=== PATIENT | male | born 1950 | race Caucasian/White ===

== ENCOUNTER 2018-11-04 07:45 | Inpatient (IN) ==
--- NOTE | 2018-11-04 08:10 | Emergency Department Note ---
ED Disposition Clinical Impression: Ileus Disposition: Admitted as Observation Condition on Discharge: Fair - Critical Care Critical Care Time: No Attestation: On , the high probability of a clinically significant, sudden or life threatening deterioration of the following system(s) required my full and direct attention, intervention and personal management. The time I documented below is in addition to time spent performing reported procedures but includes the following listed in this critical care notation. Medical Decision Making - Fred Inquiry Pt receiving controlled substance: Yes Fred was queried for this patient: Yes Reference #:: [id number] Risks and benefits of using a controlled substance: were not discussed with pt by me Comment: 0 rxs. Vital Signs: 11/04/18 07:57 11/04/18 08:17 11/04/18 09:16 Temperature 98.2 F Temperature Source Oral Pulse Rate [Right Radial] 96 H 101 H 101 H Respiratory Rate 18 Blood Pressure [Right Arm] 158/87 H 155/100 H 165/103 H Blood Pressure Mean [Right Arm] 110 118 123 Blood Pressure Source [Right Arm] Automatic Cuff Blood Pressure Position [Right Arm] Sitting Sitting Sitting 02 Sat by Pulse Oximetry 99 95 95 Oxygen Delivery Method Room Air Room Air Room Air 11/04/18 10:55 11/04/18 12:38 11/04/18 13:13 Temperature Temperature Source Pulse Rate [Right Radial] 103 H 96 H 94 H Respiratory Rate Blood Pressure [Right Arm] 133/86 137/82 138/87 Blood Pressure Mean [Right Arm] 101 100 104 Blood Pressure Source [Right Arm] Automatic Cuff Automatic Cuff Automatic Cuff Blood Pressure Position [Right Arm] Sitting Sitting Sitting 02 Sat by Pulse Oximetry 97 98 97 Oxygen Delivery Method Room Air Room Air Room Air 11/04/18 13:54 11/04/18 14:01 Temperature Temperature Source Pulse Rate [Right Radial] 92 H 89 Respiratory Rate Blood Pressure [Right Arm] 149/71 H 149/71 H Blood Pressure Mean [Right Arm] 97 97 Blood Pressure Source [Right Arm] Automatic Cuff Automatic Cuff Blood Pressure Position [Right Arm] Sitting Sitting 02 Sat by Pulse Oximetry 95 98 Oxygen Delivery Method Room Air Room Air - Lab Data Lab Results 11/04/18 07:50: WBC 10.0, RBC 5.30, Hgb 14.6, Hct 44.3, MCV 83.5, MCH 27.4, MCHC 32.9, RDW 13.2, Plt Count 310, MPV 7.3 L, Neut % (Auto) 89.7 H, Lymph % (Auto) 6.1 L, [place] % (Auto) 3.8, Eos % (Auto) 0.2, Baso % (Auto) 0.2, Neut # (Auto) 8.9 H, Lymph # (Auto) 0.6 L, [place] # (Auto) 0.4, Eos # (Auto) 0.0, Baso # (Auto) 0.0, Total Counted 100, Neutrophils % (Manual) 90 H, Lymphocytes % (Manual) 5 L, Atypical Lymphs % 2.0, Monocytes % (Manual) 3, Platelet Estimate Normal 11/04/18 07:50: Sodium 135 L, Potassium 4.1, Chloride 100, Carbon Dioxide 27, Anion Gap 12.1, BUN 10, Creatinine 1.18, Estimated Creat Clear 67, Estimated GFR 62, Est GFR ( Amer) 75, Glucose 128 H, Calcium 9.6, Total Bilirubin 0.6, AST 25, ALT 44, Alkaline Phosphatase 88, Troponin I < 0.02, Total Protein 8.1, Albumin 4.4, Globulin 3.7 H, Albumin/Globulin Ratio 1.2, Lipase 220 Result diagrams: 11/04/18 07:50 11/04/18 07:50 Orders (Tests/Meds): ED MEDICATIONS Generic Name Dose Route Start Last Admin Trade Name Freq PRN Reason Stop Dose Admin Sodium Chloride 1,000 mls @ 150 mls/hr 11/04/18 13:45 Sod Chlor 0.9% 1000ml Bag IV 12/04/18 13:44 .[id number] ALANNA Sodium Chloride 10 ml 11/04/18 08:06 Saline Flush 10ml Syringe IV 12/04/18 08:05 NEEDED PRN Maintain IV Site Discontinued Medications Generic Name Dose Route Start Last Admin Trade Name Freq PRN Reason Stop Dose Admin Famotidine 20 mg 11/04/18 08:06 11/04/18 08:20 Pepcid 20mg/2ml Vial IV 11/04/18 08:07 20 mg ONCE ONE Administration Ioversol 75 ml 11/04/18 12:04 11/04/18 12:06 Rad-Optiray 350 100ml Vial IV 11/04/18 12:05 75 ml ONCE ONE Administration Protocol Metoclopramide HCl 5 mg 11/04/18 08:06 11/04/18 08:19 Reglan 10mg/2ml Vial IVP 11/04/18 08:07 5 mg ONCE ONE Administration Morphine Sulfate 4 mg 11/04/18 10:14 11/04/18 10:19 Morphine 4mg/Ml Syringe IV 11/04/18 10:15 4 mg ONCE ONE Administration Morphine Sulfate 4 mg 11/04/18 13:42 11/04/18 14:02 Morphine 4mg/Ml Syringe IV 11/04/18 13:43 4 mg ONCE ONE Administration Ondansetron HCl 4 mg 11/04/18 08:06 11/04/18 08:19 Zofran 4mg/2ml Vial IV 11/04/18 08:07 4 mg ONCE ONE Administration Promethazine HCl 12.5 mg 11/04/18 13:42 11/04/18 14:02 Phenergan 25mg/Ml 1ml Vial IV 11/04/18 13:43 12.5 mg ONCE ONE Administration Sodium Chloride 1,000 ml 11/04/18 08:06 11/04/18 08:20 Sod Chlor 0.9% 1000ml Bag IV 11/04/18 08:07 1,000 ml BOLUS ONE Administration Sodium Chloride 8 ml 11/04/18 08:06 11/04/18 08:20 Saline Flush 10ml Syringe IV 11/04/18 08:07 8 ml ONCE ONE Administration Sodium Chloride 10 ml 11/04/18 12:04 11/04/18 12:05 Rad-Saline Flush 10ml Syringe IV 11/04/18 12:05 10 ml ONCE ONE Administration Sodium Chloride 25 ml 11/04/18 13:42 11/04/18 14:03 Sod Chlor 0.9% 25ml Bag IV 11/04/18 13:43 25 ml ONCE ONE Administration ORDERS Category Date Time Status Urinalysis and Microscopic Stat Lab 11/04/18 08:06 Ordered - CT Data CT Scan: Abdomen, Pelvis Time Received: 13:[address] Reviewed: Yes: I discussed the CT results w/the radiologist Findings Narrative: IMPRESSION: 1. Moderately dilated loops of small bowel with air-fluid levels. Transition point is not identified. Residual oral contrast is present within the stomach despite waiting 2 hours for imaging. The findings may represent to an ileus. Cannot exclude the possibility of a small bowel obstruction. There are some fluid-filled loops of large bowel the cecum and ascending colon region. 2. Large hiatal hernia. Dictated By: Barrie Overton MD 11/04/18 1318 - ECG Data Tracing #1 EKG interpreted by Rodrick Sandoval MD: Rhythm: sinus Rate: 98 [place]: normal Ectopy: none Conduction: normal ST Segment Changes: none T Wave Changes: none Q Waves: none No evidence of acute ischemia or injury - Physician Consults Physician Consulted: Mika Time: 13:57 Reason -: Surgical Eval/Care Comment/Response: States to call Dr. Bro, who is on-call today. Additional Consult: Dieudonne Time: 14:13 Reason -: Surgical Eval/Care Comment/Response: Requests that patient be admitted to primary care with consult to surgery. Additional Consult: Danny Time: 14:40 Reason -: Admission Comment/Response: Agrees to admit the patient to the hospital. We discussed the patient's clinical information, including history, exam, laboratory and radiology results and ED course. Per hospital procedure, I will write temporary bridge inpatient orders on the patient. Specific orders requested by the admitting physician: IV fluids, pain medication, nausea medication, surgery consult - Reevaluation(s) Time: 10:12 Reevaluation #1: Has been able to hold contrast down so far. States pain is still 6/10. Discussed pain medication. He requests something for pain. Says that at [facility] he was given morphine. Medical Decision Narrative: Given that this is a chronic, recurrent complaint, I discussed with the patient what evaluation and treatment that he preferred, including CT scan. He prefers that a full abdominal pain evaluation be performed. He does not know what medications have helped him in the past. Records reviewed, noted to have prior visit here to the emergency room in September of last year for abdominal problems. Had a CT scan: --IMPRESSION.---- 1. probable colitis right colon. Wall thickening throughout the ascending colon .. Long segment of wall thickening tend to suggest colitis versus other pathology, however surprised continue to see solid rather than liquid stool throughout colon. Clinical correlation required 2. Small bowel is not dilated. Note undigested food terminal ileum, as well as more proximal small bowel.. Nonspecific but May reflect ileus 3. Prominent hiatal hernia Dictated By: Thierry Saldivar Signed By: <Electronically signed by Thierry Saldivar in OV> 09/29/17 1216 Reviewed recent records from colonoscopy. Polyps removed were benign on pathology. Dr. Greene was performing barium enema because of tortuosity and spasticity encountered on colonoscopy. General Adult HPI - General Chief complaint: Abdominal Pain Stated complaint: stomach pain and burning Time Seen by Provider: 11/04/18 08:07 Mode of Arrival: Wheelchair Limitations: No Limitations Description of Symptoms (Recalled from ER Triage Doc. by RN): PT C/O CHRONIC ABD BURNING IN THE UMBILICUS REGION. PT ADVISES THAT HE HAD AN APPT FOR A BARIUM ENEMA STUDY THIS MORNING, BUT FELT THAT HE WAS UNABLE TO D/T THE SEVERITY OF THE BURNING IN HIS ABD. PT STATES THAT THIS HAS BEEN GOING ON FOR A COUPLE YEARS AND HE HAS HAD MULTIPLE TESTS RUN WITH NO RESULTS. - History of Present Illness HPI narrative: Complains of periumbilical abdominal pain, vomiting, and diarrhea that began last night. He says that he has had so much diarrhea that he now has small amounts of blood on the toilet paper when he wipes from where he is gotten raw. Says that he was prepping for a barium enema to be performed today as follow-up for colonoscopy that he had 3 months ago. He says the symptoms are recurrent over several years. He says that he had 2 episodes in April and was hospitalized both times at [facility] in [place]. After his most recent hospitalization, he followed up with Dr. Brennan and had a colonoscopy done. He believes 2 polyps were removed. He says that the barium enema was to be performed today as follow-up from that study, "because he wanted to make sure he did not miss anything". Patient states that no cause for his symptoms has been found to his knowledge. He does not know what seems to help him best when he comes to the emergency room as far as medication or treatment. He is on a proton pump inhibitor for reflux. He is aware that he has a hiatal hernia. - Related Data Home Medications Medication Instructions Recorded Confirmed Atorvastatin Calcium [Atorvastatin 20 mg PO DAILY 09/28/17 07/01/18 20mg Tab] Lisinopril [Lisinopril 20mg Tab] 20 mg PO DAILY 09/28/17 07/01/18 Pantoprazole Sodium [Pantoprazole 20 mg PO DAILY 09/28/17 07/01/18 20mg Tab] Allergies Allergy/AdvReac Type Severity Reaction Status Date / Time No Known Allergies Allergy Verified 07/01/18 10:35 [facility] History - Hepatitis A Screen Drug use history?: No High risk sexual behaviors?: No History of sexually transmitted infection?: No Currently employed?: No Childcare worker?: No Do you have indoor plumbing?: Yes Do you have electricity?: Yes Attestation statement:: This patient has been screened for Hepatitis A risk factors. I have reviewed the patient's past medical history: Yes Medical History: Reports:: Cancer, Gastroesophageal Reflux Disease(GERD), Hyperlipidemia, Hypertension Denies:: Diabetes Mellitus Type 1, Diabetes Mellitus Type 2, Internal Pacemaker, Lung Disease, Seizures Other Surgeries: Yes: Cancer Surgery (prostate removal), Colonoscopy. No: Pacemaker - Social History Smoking Status: Never smoker Alcohol Intake: never Occupational Status: employed Family Hx:: Diabetes ROS Obtained: Yes All systems reviewed & no additional complaints - Constitutional Constitutional: Denies fever(s) - Cardiovascular Cardiovascular: Denies chest pain - Respiratory Respiratory: No dyspnea - Gastrointestinal Gastrointestingal: Reports: abdominal pain, diarrhea, bright red blood in stools, vomiting - Genitourinary Male Genitourinary: Denies difficulty urinating Physical Exam - General General appearance: alert, in no apparent distress - Head Head exam: atraumatic, normocephalic - Eye Eye exam: Present: normal appearance, EOMI - ENT ENT exam: Present: mucous membranes moist - Neck Neck exam: Present: normal inspection, trachea midline - Chest Chest inspection: Present: normal inspection, symmetric chest wall rise - Respiratory Respiratory exam: Present: normal lung sounds bilaterally. Absent: respiratory distress - Cardiovascular Cardiovascular exam: Present: regular rate, normal rhythm, normal heart sounds - Abdominal Exam Abdominal exam: Present: soft, tenderness, normal bowel sounds. Absent: distention, guarding, rebound, rigidity Abdominal tenderness: Present: diffuse - Extremities Exam Extremities exam: Present: normal inspection - Neurological Exam Neurological exam: Present: alert, oriented X3 - Psychiatric Psychiatric exam: Present: normal affect, normal mood - Skin Skin exam: Present: warm, dry
[2018-11-04 08:27] LABS: Basophils % 0.2 % (0.1-2.0); Eosinophils % 0.2 % (0.1-12.0); Hematocrit 44.3 % (42.0-52.0); Hemoglobin 14.6 g/dL (14.1-18.0); Lymphocytes # 0.6 K/mm3 (0.7-4.5); Lymphocytes % 6.1 % (10-50); Mean Corpuscular HGB Conc 32.9 g/dL (31.8-35.4); Mean Corpuscular Volume 83.5 fl (80-94); Mean Platelet Volume 7.3 fl (7.4-10.4); Monocytes # 0.4 K/mm3 (0.1-1.0); Monocytes % 3.8 % (1.7-9.3); Neutrophils # 8.9 K/mm3 (1.8-7.8); Neutrophils % 89.7 % (37.0-80.0); Platelet Count 310 K/mm3 (142-424); Red Cell Distribution Width 13.2 % (11.5-17.5)
[2018-11-04 08:54] LABS: Alanine Aminotransferase 44 U/L (12-78); Albumin Level 4.4 gm/dL (3.4-5.0); Albumin/Globulin Ratio 1.2 (1.1-1.8); Alkaline Phosphatase 88 U/L (46-116); Anion Gap 12.1 mEq/L (5-15); Aspartate Amino Transferase 25 U/L (15-37); Bilirubin,Total 0.6 mg/dL (0.2-1.0); Blood Urea Nitrogen 10 mg/dL (7-18); Calcium 9.6 mg/dL (8.5-10.1); Carbon Dioxide 27 mmol/L (21.0-32.0); Chloride 100 mmol/L (98-107); Globulin 3.7 gm/dl (1.3-3.2); Glucose 128 mg/dL (74-106); Sodium 135 mmol/L (136-145); Total Protein,Serum 8.1 gm/dL (6.4-8.2)
[2018-11-04 09:38] LABS: Lymphocytes % 5 % (10-50); Monocytes % 3 % (2-9); Neutrophils % 90 % (42-76); Total Cells Counted 100
--- NOTE | 2018-11-04 15:00 | Consult Report ---
*Admission Date: 11/04/18 *Reason for consult:: Possible bowel obstruction *History of present illness: Patient is a 67-year-old white male. For many years he has had occasional episodes of acute abdominal distention, cramping pain, nausea, and often diarrhea. Apparently he has had a couple of hospitalizations in [facility] where he was evaluated for this. Apparently there is no obvious etiology for his symptoms. Of note, the patient did undergo upper endoscopy and colonoscopy in [address] Laurel Tan at which time he did have suspicious esophageal stricture and also had 5 polyps removed during colonoscopy. He did have a follow-up upper endoscopy a month later which revealed resolved eso phagitis. Dr. Brennan had performed a colonoscopy in February 2016 at which time he had a polypectomy performed. Dr. Brennan performed a follow-up colonoscopy several months ago in June of this year at which time he did have a polyp removed in the right colon which was benign. There was tortuosity and spasticity of the colon and patient had a barium enema scheduled to work this up for which she was scheduled to have done today. He had drank the magnesium citrate colonic preparation in anticipation of barium enema today. He had then developed some symptoms as before with abdominal distention and cramping pain. He presented to the emergency department at [facility]. He underwent CT scan with IV and oral contrast. This reveals some findings mostly consistent with diffuse ileus with possible bowel obstruction. Contrast is retained within the gastric lumen and there is small bowel distention with air- fluid levels diffusely. There is no transition point consistent with mechanical obstruction. His apparent only prior surgery is robotically assisted laparoscopic prostatectomy. There is a possible history of prior hernia repair. Review of Systems - Review of Systems Review of systems:: pertinent systems reviewed and negative unless documented below [facility] History Medical History: Reports:: Cancer, Gastroesophageal Reflux Disease(GERD), Hyperlipidemia, Hypertension Denies:: Diabetes Mellitus Type 1, Diabetes Mellitus Type 2, Internal Pacemaker, Lung Disease, Seizures *Have you ever received a pneumonia vaccine?: Yes *Have you received a flu vaccine this season?: Yes Other Surgeries: Yes: Cancer Surgery (prostate removal), Colonoscopy. No: Pacemaker - *Social History Smoking Status: Never smoker Alcohol Intake: never *Occupational Status:: employed *Travel in the last 8 weeks: None Family Hx:: Diabetes Meds Home Medications Medication Instructions Recorded Confirmed Type Atorvastatin Calcium [Atorvastatin 20 mg PO DAILY 09/28/17 07/01/18 History 20mg Tab] Lisinopril [Lisinopril 20mg Tab] 20 mg PO DAILY 09/28/17 07/01/18 History Pantoprazole Sodium [Pantoprazole 20 mg PO DAILY 09/28/17 07/01/18 History 20mg Tab] Allergies Allergy/AdvReac Type Severity Reaction Status Date / Time No Known Allergies Allergy Verified 07/01/18 10:35 Exam Vital signs and Labs for Last 24 Hours: Temp Pulse Resp BP Pulse Ox 98.2 F 89 18 149/71 H 98 11/04/18 07:57 11/04/18 14:01 11/04/18 07:57 11/04/18 14:01 11/04/18 14:01 Laboratory Results - last 24 hr 11/04/18 07:50: WBC 10.0, RBC 5.30, Hgb 14.6, Hct 44.3, MCV 83.5, MCH 27.4, MCHC 32.9, RDW 13.2, Plt Count 310, MPV 7.3 L, Neut % (Auto) 89.7 H, Lymph % (Auto) 6.1 L, [place] % (Auto) 3.8, Eos % (Auto) 0.2, Baso % (Auto) 0.2, Neut # (Auto) 8.9 H, Lymph # (Auto) 0.6 L, [place] # (Auto) 0.4, Eos # (Auto) 0.0, Baso # (Auto) 0.0, Total Counted 100, Neutrophils % (Manual) 90 H, Lymphocytes % (Manual) 5 L, Atypical Lymphs % 2.0, Monocytes % (Manual) 3, Platelet Estimate Normal 11/04/18 07:50: Sodium 135 L, Potassium 4.1, Chloride 100, Carbon Dioxide 27, Anion Gap 12.1, BUN 10, Creatinine 1.18, Estimated Creat Clear 67, Estimated GFR 62, Est GFR ( Amer) 75, Glucose 128 H, Calcium 9.6, Total Bilirubin 0.6, AST 25, ALT 44, Alkaline Phosphatase 88, Troponin I < 0.02, Total Protein 8.1, Albumin 4.4, Globulin 3.7 H, Albumin/Globulin Ratio 1.2, Lipase 220 I & O for Last 24 hours: Intake & Output 07/14/19 07/15/19 07/16/19 07/17/19 11:59 11:59 11:59 11:59 Weight 170 lb - *Routine HEENT Exam Head: Present: normocephalic Eye: Present: EOMI, PERRL ENT: Present: mucous membranes moist - *Routine Neck Exam Present: supple. Absent: lymphadenopathy - *Routine Respiratory Exam Present: CTA bilaterally - *Routine Cardiovascular Exam Present: RRR - *Routine Abdominal Exam Present: tenderness Comments: His abdomen is somewhat distended. He has hypoactive bowel sounds. He has no guarding or rebound. Diffuse minor discomfort to deep palpation. - *Routine Extremities Exam Absent: cyanosis, clubbing, edema - *Routine Skin Exam Present: warm. Absent: rash - *Routine Neurological Exam Present: alert, oriented X3 - Detailed Eye Exam Eyelids: Left normal inspection Results - Labs 11/04/18 07:50 11/04/18 07:50 Laboratory Results - last 24 hr 11/04/18 07:50: WBC 10.0, RBC 5.30, Hgb 14.6, Hct 44.3, MCV 83.5, MCH 27.4, MCHC 32.9, RDW 13.2, Plt Count 310, MPV 7.3 L, Neut % (Auto) 89.7 H, Lymph % (Auto) 6.1 L, [place] % (Auto) 3.8, Eos % (Auto) 0.2, Baso % (Auto) 0.2, Neut # (Auto) 8.9 H, Lymph # (Auto) 0.6 L, [place] # (Auto) 0.4, Eos # (Auto) 0.0, Baso # (Auto) 0.0, Total Counted 100, Neutrophils % (Manual) 90 H, Lymphocytes % (Manual) 5 L, Atypical Lymphs % 2.0, Monocytes % (Manual) 3, Platelet Estimate Normal 11/04/18 07:50: Sodium 135 L, Potassium 4.1, Chloride 100, Carbon Dioxide 27, Anion Gap 12.1, BUN 10, Creatinine 1.18, Estimated Creat Clear 67, Estimated GFR 62, Est GFR ( Amer) 75, Glucose 128 H, Calcium 9.6, Total Bilirubin 0.6, AST 25, ALT 44, Alkaline Phosphatase 88, Troponin I < 0.02, Total Protein 8.1, Albumin 4.4, Globulin 3.7 H, Albumin/Globulin Ratio 1.2, Lipase 220 Assessment and Plan - Assessment and plan all Dx Assessment and Plan for all problems:: Patient has findings consistent with ileus versus partial bowel obstruction. Plan for expectant management at this time. To investigate the etiology of these ongoing symptoms he may require small bowel follow-through and potentially capsule endoscopy in the future assuming his symptoms improved without intervention during this hospitalization.
--- NOTE | 2018-11-04 15:46 | Pharmacy Consult Notes ---
[facility] Pharmacy VTE Monitoring - Patient Demographics Admission date: 11/04/18 Report Date: 11/04/18 Time: 15:46 Allergies/Adverse Reactions: Patient Allergies No Known Allergies Allergy (Verified 07/01/18 10:35) Height: 1.75 m Weight: 77.111 kg Patient Problems: Current Active Problems (Updated 11/04/18 @ 14:41 by Rodrick Sandoval MD) Ileus (Acute) - VTE Risk Labs: VTE Related Lab Results Hgb 14.6 g/dL (14.1-18.0) 11/04/18 07:50 Hct 44.3 % (42.0-52.0) 11/04/18 07:50 Plt Count 310 K/mm3 (142-424) 11/04/18 07:50 BUN 10 mg/dL (7-18) 11/04/18 07:50 Creatinine 1.18 mg/dL (0.70-1.30) 11/04/18 07:50 Estimated Creat Clear 67 mL/min (50-200) 11/04/18 07:50 - Prophylaxis VTE Prophylaxis Ordered?: Yes Types of VTE Prophylaxis: TEDS Knee High Location of Applied Device: Bilateral Lower Extremeties - VTE Diagnosis Confirmed Treatment or plan recommended: Continue Current Treatment
--- NOTE | 2018-11-04 16:20 | History & Physical Report ---
*Admission Date: 11/04/18 *Chief complaint: Abdominal pain *History of present illness: Patient is a 67-year-old white male. For many years he has had occasional episodes of acute abdominal distention, cramping pain, nausea, and often diarrhea. Apparently he has had a couple of hospitalizations in [facility] where he was evaluated for this. Apparently there is no obvious etiology for his symptoms. Of note, the patient did undergo upper endoscopy and colonoscopy in [address] Laurel Tan at which time he did have suspicious esophageal stricture and also had 5 polyps removed during colonoscopy. He did have a follow-up upper endoscopy a month later which revealed resolved esophagitis. Dr. Brennan had performed a colonoscopy in February 2016 at which time he had a polypectomy performed. Dr. Brennan performed a follow-up colonoscopy several months ago in June of this year at which time he did have a polyp removed in the right colon which was benign. There was tortuosity and spasticity of the colon and patient had a barium enema scheduled to work this up for which she was scheduled to have done today. He had drank the magnesium citrate colonic preparation in anticipation of barium enema today. He had then developed some symptoms as before with abdominal distention and cramping pain. He presented to the emergency department at [facility]. He underwent CT scan with IV and oral contrast. This reveals some findings mostly consistent with diffuse ileus with possible bowel obstruction. Contrast is retained within the gastric lumen and there is small bowel distention with air- fluid levels diffusely. There is no transition point consistent with mechanical obstruction. His apparent only prior surgery is robotically assisted laparoscopic prostatectomy. There is a possible history of prior hernia repair. [facility] History I have reviewed the patient's past medical history: Yes Medical History: Reports:: Cancer (prostate cancer 2013), Gastroesophageal Reflux Disease(GERD), Hyperlipidemia, Hypertension Denies:: Diabetes Mellitus Type 1, Diabetes Mellitus Type 2, Internal Pacemaker, Lung Disease, Seizures *Have you ever received a pneumonia vaccine?: Yes *Have you received a flu vaccine this season?: Yes Other Surgeries: Yes: Cancer Surgery (prostate removal), Colonoscopy, Other (prostate removed). No: Pacemaker - *Social History Smoking Status: Never smoker Alcohol Intake: never *Occupational Status:: employed *Travel in the last 8 weeks: None - Psychiatric History Expresses thoughts of harming self/others: None Suicide Plan Description: No Plan Family Hx:: Diabetes Review of Systems - Review of Systems Review of systems:: pertinent systems reviewed and negative unless documented below - Constitutional Denies chills, Denies fever(s) - *Cardiovascular Denies chest pain, Denies chest pain at rest - *Respiratory Denies chest congestion, Denies cough, Denies shortness of breath - *Gastrointestinal Reports abdominal pain, Reports bloating, Reports change in bowel habits, Reports cramping, Reports loose stools, Reports nausea, Reports other (Dry heaving) - *Genitourinary Denies difficulty urinating Meds Home Medications Medication Instructions Recorded Confirmed Type Atorvastatin Calcium [Atorvastatin 20 mg PO DAILY 09/28/17 11/04/18 History 20mg Tab] Lisinopril [Lisinopril 20mg Tab] 20 mg PO DAILY 09/28/17 11/04/18 History Pantoprazole Sodium [Protonix 40mg 40 mg PO DAILY 11/04/18 11/04/18 History tablet] Allergies Allergy/AdvReac Type Severity Reaction Status Date / Time No Known Allergies Allergy Verified 07/01/18 10:35 Exam Vital signs and Labs for Last 24 Hours: Temp Pulse Resp BP Pulse Ox 98.2 F 101 H 17 142/88 H 97 11/04/18 15:44 11/04/18 15:44 11/04/18 15:44 11/04/18 15:44 11/04/18 15:44 Laboratory Results - last 24 hr 11/04/18 07:50: WBC 10.0, RBC 5.30, Hgb 14.6, Hct 44.3, MCV 83.5, MCH 27.4, MCHC 32.9, RDW 13.2, Plt Count 310, MPV 7.3 L, Neut % (Auto) 89.7 H, Lymph % (Auto) 6.1 L, [place] % (Auto) 3.8, Eos % (Auto) 0.2, Baso % (Auto) 0.2, Neut # (Auto) 8.9 H, Lymph # (Auto) 0.6 L, [place] # (Auto) 0.4, Eos # (Auto) 0.0, Baso # (Auto) 0.0, Total Counted 100, Neutrophils % (Manual) 90 H, Lymphocytes % (Manual) 5 L, Atypical Lymphs % 2.0, Monocytes % (Manual) 3, Platelet Estimate Normal 11/04/18 07:50: Sodium 135 L, Potassium 4.1, Chloride 100, Carbon Dioxide 27, Anion Gap 12.1, BUN 10, Creatinine 1.18, Estimated Creat Clear 67, Estimated GFR 62, Est GFR ( Amer) 75, Glucose 128 H, Calcium 9.6, Total Bilirubin 0.6, AST 25, ALT 44, Alkaline Phosphatase 88, Troponin I < 0.02, Total Protein 8.1, Albumin 4.4, Globulin 3.7 H, Albumin/Globulin Ratio 1.2, Lipase 220 I & O for Last 24 hours: Intake & Output 11/02/18 11/03/18 11/04/18 11/05/18 11:59 11:59 11:59 11:59 Weight 170 lb 180 lb Narrative: At present patient is laying in bed and appears comfortable. ENT exam is normal. Neck has no carotid bruits or lymphadenopathy. Lungs are clear to auscultation. Heart has a rapid rate and rhythm, no murmur, normal S1 and S2. Abdomen is mildly distended and soft with hypoactive bowel sounds. No tenderness is elicited. Patient has a normal neurologic exam. Skin is without rashes Assessment and Plan (1) Ileus Current visit: Yes Status: Acute Category: Medical Code(s): K56.7 - Ileus, unspecified - Assessment and plan all Dx Assessment and Plan for all problems:: Patient has been admitted for IV fluids and serial abdominal exams. He will be kept n.p.o. and have repeat abdominal films in the morning
--- NOTE | 2018-11-05 06:56 | Progress Note ---
Internal Medicine - PN: Subj *Date: 11/05/18 *Time: 06:53 Interval history: Patient reports lots of crampy abdominal pain overnight. He received some PRN pain medication this morning which has him comfortable at present. He continues to have some nausea but endorses lots of belching as well. He admits to small amounts of flatus. He denies any bowel movement since admission. He is urinating frequently. Exam Vital signs and Labs for Last 24 Hours: Temp Pulse Resp BP Pulse Ox 97.8 F 99 H 20 148/81 H 96 11/05/18 04:10 11/05/18 04:10 11/05/18 04:10 11/05/18 04:10 11/05/18 04:10 Laboratory Results - last 24 hr 11/04/18 07:50: WBC 10.0, RBC 5.30, Hgb 14.6, Hct 44.3, MCV 83.5, MCH 27.4, MCHC 32.9, RDW 13.2, Plt Count 310, MPV 7.3 L, Neut % (Auto) 89.7 H, Lymph % (Auto) 6.1 L, [place] % (Auto) 3.8, Eos % (Auto) 0.2, Baso % (Auto) 0.2, Neut # (Auto) 8.9 H, Lymph # (Auto) 0.6 L, [place] # (Auto) 0.4, Eos # (Auto) 0.0, Baso # (Auto) 0.0, Total Counted 100, Neutrophils % (Manual) 90 H, Lymphocytes % (Manual) 5 L, Atypical Lymphs % 2.0, Monocytes % (Manual) 3, Platelet Estimate Normal 11/04/18 07:50: Sodium 135 L, Potassium 4.1, Chloride 100, Carbon Dioxide 27, Anion Gap 12.1, BUN 10, Creatinine 1.18, Estimated Creat Clear 67, Estimated GFR 62, Est GFR ( Amer) 75, Glucose 128 H, Calcium 9.6, Total Bilirubin 0.6, AST 25, ALT 44, Alkaline Phosphatase 88, Troponin I < 0.02, Total Protein 8.1, Albumin 4.4, Globulin 3.7 H, Albumin/Globulin Ratio 1.2, Lipase 220 I & O for Last 24 hours: Intake & Output 11/02/18 11/03/18 11/04/1819 11:59 11:59 11:59 11:59 Intake Total 1851 / 1851 Output Total 350 / 350 Balance 1501 / 1501 Weight 170 lb 178 lb 4 oz Narrative: He looks comfortable at present. Lungs are clear. Heart has a regular rate and rhythm. Abdomen is soft and distended. This morning bowel sounds are more prominent. Abdominal series performed this morning continues to show gaseous distention and multiple air-fluid levels Assessment and Plan (1) Ileus Current visit: Yes Status: Acute Category: Medical Code(s): K56.7 - Ileus, unspecified - Assessment and plan all Dx Assessment and Plan for all problems:: Continue n.p.o. status. Patient is ambulating. I did inquire about previous hospitalizations and use of NG tube to try to relieve his gaseous distention. He tells me during his last hospitalization at [facility] the NG tube could not be placed properly due to his hiatal hernia and ultimately the idea of inserting the NG was given up on. This was in April of this year.
--- NOTE | 2018-11-05 07:56 | Progress Note ---
Subjective Narrative: Patient states that last night he had some cramping abdominal pain. He has had some nausea and dry heaves with belching. He does state that he is passing a "little bit" of gas. In the past, when he has had the symptoms at the outside facility, nasogastric tube placement has been unsuccessful largely due to his very large hiatal hernia. Exam Vital signs and Labs for Last 24 Hours: Temp Pulse Resp BP Pulse Ox 98.9 F 50 L 16 151/79 H 100 11/05/18 07:47 11/05/18 07:47 11/05/18 07:47 11/05/18 07:47 11/05/18 07:47 Laboratory Results - last 24 hr 11/04/18 07:50: WBC 10.0, RBC 5.30, Hgb 14.6, Hct 44.3, MCV 83.5, MCH 27.4, MCHC 32.9, RDW 13.2, Plt Count 310, MPV 7.3 L, Neut % (Auto) 89.7 H, Lymph % (Auto) 6.1 L, [place] % (Auto) 3.8, Eos % (Auto) 0.2, Baso % (Auto) 0.2, Neut # (Auto) 8.9 H, Lymph # (Auto) 0.6 L, [place] # (Auto) 0.4, Eos # (Auto) 0.0, Baso # (Auto) 0.0, Total Counted 100, Neutrophils % (Manual) 90 H, Lymphocytes % (Manual) 5 L, Atypical Lymphs % 2.0, Monocytes % (Manual) 3, Platelet Estimate Normal 11/04/18 07:50: Sodium 135 L, Potassium 4.1, Chloride 100, Carbon Dioxide 27, Anion Gap 12.1, BUN 10, Creatinine 1.18, Estimated Creat Clear 67, Estimated GFR 62, Est GFR ( Amer) 75, Glucose 128 H, Calcium 9.6, Total Bilirubin 0.6, AST 25, ALT 44, Alkaline Phosphatase 88, Troponin I < 0.02, Total Protein 8.1, Albumin 4.4, Globulin 3.7 H, Albumin/Globulin Ratio 1.2, Lipase 220 I & O for Last 24 hours: Intake & Output 11/02/18 11/03/18 11/04/18 11/05/18 11:59 11:59 11:59 11:59 Intake Total 1851 / 1851 Output Total 350 / 350 Balance 1501 / 1501 Weight 170 lb 178 lb 4 oz - *Routine Abdominal Exam Present: distended Comments: He has hypoactive with occasional high-pitched bowel sounds. Abdomen is somewhat distended. Progress Note: A&P (1) Ileus Status: Acute Current Visit: Yes Assessment and Plan for All Diagnoses:: Continue bowel rest at this time. Acute abdominal series shows persistent appreciable gaseous distention of the small bowel with some air-fluid levels but may be slightly improved.
--- NOTE | 2018-11-06 07:09 | Progress Note ---
Internal Medicine - PN: Subj *Date: 11/06/18 *Time: 07:08 Interval history: Patient complains of heartburn this morning. He reports he has been to the bathroom frequently beginning yesterday evening and overnight with lots of watery bowel movements and flatus. He denies abdominal pain Exam Vital signs and Labs for Last 24 Hours: Temp Pulse Resp BP Pulse Ox 98.9 F 106 H 17 137/90 94 L 11/06/18 03:44 11/06/18 03:44 11/06/18 03:44 11/06/18 03:44 11/06/18 03:44 I & O for Last 24 hours: Intake & Output 11/03/18 11/04/18 11/05/18 11/06/18 11:59 11:59 11:59 11:59 Intake Total 1851 / 1851 3643 / 3643 Output Total 350 / 350 100 / 100 Balance 1501 / 1501 3543 / 3543 Weight 170 lb 178 lb 4.005 oz 187 lb 6 oz Narrative: He looks well. Lungs are clear. Heart has a regular rate and rhythm. Abdomen is mildly distended with active bowel sounds and no tenderness Assessment and Plan (1) Ileus Current visit: Yes Status: Acute Category: Medical Code(s): K56.7 - Ileus, unspecified - Assessment and plan all Dx Assessment and Plan for all problems:: Patient is slowly improving. I am going to give him some clear liquids this morning. Encouraged him to ambulate. IV Protonix for his acid reflux
--- NOTE | 2018-11-06 08:00 | Progress Note ---
Subjective Narrative: Patient complains of heartburn overnight. He states that he has had numerous loose liquid bowel movements. He states he feels somewhat better. Exam Vital signs and Labs for Last 24 Hours: Temp Pulse Resp BP Pulse Ox 98.0 F 105 H 18 140/94 H 99 11/06/18 07:51 11/06/18 07:51 11/06/18 07:51 11/06/18 07:51 11/06/18 07:51 I & O for Last 24 hours: Intake & Output 11/03/18 11/04/18 11/05/18 11/06/18 11:59 11:59 11:59 11:59 Intake Total 1851 / 1851 3643 / 3643 Output Total 350 / 350 100 / 100 Balance 1501 / 1501 3543 / 3543 Weight 170 lb 178 lb 4.005 oz 187 lb 6 oz - *Routine Abdominal Exam Absent: tenderness Comments: His abdomen is somewhat distended. He has hypoactive bowel sounds. Progress Note: A&P (1) Ileus Status: Acute Current Visit: Yes Assessment and Plan for All Diagnoses:: Agree with clear liquids. Continue attempts at nonoperative management.
--- NOTE | 2018-11-07 07:16 | Progress Note ---
Internal Medicine - PN: Subj *Date: 11/07/18 *Time: 07:15 Interval history: Patient is without any new complaints this morning. He is still having frequent watery bowel movements, typically after drinking his clear liquids. He denies hunger. He denies nausea and pain Exam Vital signs and Labs for Last 24 Hours: Temp Pulse Resp BP Pulse Ox 98.3 F 59 L 18 109/64 L 92 L 11/07/18 04:00 11/07/18 04:00 11/07/18 04:00 11/07/18 04:00 11/07/18 04:00 I & O for Last 24 hours: Intake & Output 11/04/18 11/05/18 11/06/18 11/07/18 11:59 11:59 11:59 11:59 Intake Total 1851 / 1851 3643 / 3643 1769 / 1769 Output Total 350 / 350 100 / 100 150 / 150 Balance 1501 / 1501 3543 / 3543 1619 / 1619 Weight 170 lb 178 lb 4.005 oz 187 lb 6 oz 188 lb 6 oz Narrative: He does not appear ill. Lungs are clear. Heart has a regular rate and rhythm. Abdomen is soft and nontender with active bowel sounds Assessment and Plan (1) Ileus Current visit: Yes Status: Acute Category: Medical Code(s): K56.7 - Ileus, unspecified - Assessment and plan all Dx Assessment and Plan for all problems:: His ileus is improving. I am going to advance his diet to full liquids. Ideall y the patient will be tolerating full liquids prior to discharge.
--- NOTE | 2018-11-07 07:17 | Progress Note ---
Subjective Patient reports: feels better, flatus, bowel movement (still with intermittent "loose stool") Exam Vital signs and Labs for Last 24 Hours: Temp Pulse Resp BP Pulse Ox 98.3 F 59 L 18 109/64 L 92 L 11/07/18 04:00 11/07/18 04:00 11/07/18 04:00 11/07/18 04:00 11/07/18 04:00 I & O for Last 24 hours: Intake & Output 11/04/18 11/05/18 11/06/18 11/07/18 11:59 11:59 11:59 11:59 Intake Total 1851 / 1851 3643 / 3643 1769 / 1769 Output Total 350 / 350 100 / 100 150 / 150 Balance 1501 / 1501 3543 / 3543 1619 / 1619 Weight 170 lb 178 lb 4.005 oz 187 lb 6 oz 188 lb 6 oz - Constitutional no acute distress - *Routine Respiratory Exam Absent: respiratory distress - *Routine Abdominal Exam Present: soft. Absent: tenderness Comments: minimal epigastric distention (close to baseline per patient) Progress Note: A&P (1) Ileus Status: Acute Assessment and plan: continues to slowly improve slowly advance diet obtain results of prior (recent) admissions at outside facility small bowel series in near future (unless recently obtained) ? GI consult in near future if no anatomic factors identified Current Visit: Yes
--- NOTE | 2018-11-08 07:46 | Progress Note ---
Internal Medicine - PN: Subj *Date: 11/08/18 *Time: 07:44 Interval history: Patient had some crampy abdominal pains yesterday evening which ultimately he was given some Phenergan for. This caused some drowsiness so he slept very well overnight. Upon awakening this morning he says he feels quite well and actually feels hungry. He is still having frequent small watery bowel movements. He does report that stools are starting to be brown in color as opposed to just clear water. Exam Vital signs and Labs for Last 24 Hours: Temp Pulse Resp BP Pulse Ox 99.2 F 81 18 145/78 H 93 L 11/08/18 04:00 11/08/18 04:00 11/08/18 04:00 11/08/18 04:00 11/08/18 04:00 I & O for Last 24 hours: Intake & Output 11/05/18 11/06/18 11/07/18 11/08/18 11:59 11:59 11:59 11:59 Intake Total 1851 / 1851 3643 / 3643 2008 2428 / 2428 Output Total 350 / 350 100 / 100 150 / 150 Balance 1501 / 1501 3543 / 3543 1859 / 1859 2428 / 2428 Weight 178 lb 4.005 oz 187 lb 6 oz 188 lb 6 oz 188 lb 6 oz Narrative: He looks comfortable. Lungs are clear. Heart has a regular rate and rhythm. Abdomen is soft with some mild distention but active bowel sounds Assessment and Plan (1) Ileus Current visit: Yes Status: Acute Category: Medical Code(s): K56.7 - Ileus, unspecified - Assessment and plan all Dx Assessment and Plan for all problems:: Patient will eat a full liquid diet this morning and at lunch. Should patient be able to tolerate full liquids today without increase in abdominal pain, nausea, cramping then he will be discharged home this afternoon
--- NOTE | 2018-11-08 08:13 | Progress Note ---
Subjective Patient reports: feels better, flatus (Stool still fairly thin), bowel movement Exam Vital signs and Labs for Last 24 Hours: Temp Pulse Resp BP Pulse Ox 98.8 F 83 18 152/85 H 94 L 11/08/18 08:00 11/08/18 08:00 11/08/18 08:00 11/08/18 08:00 11/08/18 08:00 I & O for Last 24 hours: Intake & Output 11/05/18 11/06/18 11/07/18 11/08/18 11:59 11:59 11:59 11:59 Intake Total 1851 / 1851 3643 / 3643 2008 2548 / 2548 Output Total 350 / 350 100 / 100 150 / 150 Balance 1501 / 1501 3543 / 3543 1859 / 1859 2548 / 2548 Weight 178 lb 4.005 oz 187 lb 6 oz 188 lb 6 oz 188 lb 6 oz - Constitutional no acute distress - *Routine Abdominal Exam Present: soft. Absent: tenderness Progress Note: A&P (1) Ileus Status: Acute Assessment and plan: Continues to improve Continue slowly advance diet Possible discharge home later today with close outpatient follow-up Current Visit: Yes
--- NOTE | 2018-11-08 15:20 | Discharge Summary ---
General - General Admission date:: 11/04/18 Discharge date: 11/08/18 HPI HPI: Patient is a 67-year-old white male. For many years he has had occasional episodes of acute abdominal distention, cramping pain, nausea, and often diarrhea. Apparently he has had a couple of hospitalizations in [facility] where he was evaluated for this. Apparently there is no obvious etiology for his symptoms. Of note, the patient did undergo upper endoscopy and colonoscopy [place] [address] Laurel Tan at which time he did have suspicious esophageal stricture and also had 5 polyps removed during colonoscopy. He did have a follow-up upper endoscopy a month later which revealed resolved esophagitis. Dr. Brennan had performed a colonoscopy in February 2016 at which time he had a polypectomy performed. Dr. Brennan performed a follow-up colonoscopy several months ago in June of this year at which time he did have a polyp removed in the right colon which was benign. There was tortuosity and spasticity of the colon and patient had a barium enema scheduled to work this up for which she was scheduled to have done today. He had drank the magnesium citrate colonic preparation in anticipation of barium enema today. He had then developed some symptoms as before with abdominal distention and cramping pain. He presented to the emergency department at [facility]. He underwent CT scan with IV and oral contrast. This reveals some findings mostly consistent with diffuse ileus with possible bowel obstruction. Contrast is retained within the gastric lumen and there is small bowel distention with air- fluid levels diffusely. There is no transition point consistent with mechanical obstruction. His apparent only prior surgery is robotically assisted laparoscopic prostatectomy. There is a possible history of prior hernia repair. Hospital Course Hospital Course: Patient was admitted with diagnosis of ileus versus small bowel obstruction. Initial treatment included IV fluids and narcotics for pain control. Following morning a abdominal film was performed which showed slight improvement in suspected ileus. At this point the patient's course was somewhat slow but treatment remained conservative. On the the patient was started on clear liquids which he tolerated but could not consume any significant quantities. Patient continued to feel bloated despite passing large volume watery bowel movements as well as significant gas. On the patient continued to have poor appetite but was gradually able to consume a little bit more. He complained of some abdominal cramping on the and was given Phenergan. This allowed him to sleep quite well and he awoke on the feeling significantly better. His diet was advanced to full liquids. Patient tolerated the full liquids with only the sensation of feeling very full after consuming the full liquid diet. He was not vomiting he did not have any increase in pain or abdominal cramping. Patient was desperate to be discharged and so he was discharged home. Patient will follow-up with Dr. Greene on November 12 and follow-up with me on November 14 Objective Vital signs: Temp Pulse Resp BP Pulse Ox 98.8 F 83 18 152/85 H 95 11/08/18 08:00 11/08/18 08:00 11/08/18 08:00 11/08/18 08:00 11/08/18 08:43 DS: Diagnosis - Discharge Diagnosis (1) Ileus Status: Acute Discharge Plan - Patient Discharge Instructions ACTIVITY: Continue current activity DIET: continue same diet Patient Instructions: [place] Diet, DI for Ileus - Follow up Plan Follow up with: Isaias Brennan MD [Staff Physician] - 11/12/18 Shantanu Delgado MD [Primary Care Provider] - 11/14/18 10:00 am Disposition: Home, Self-Shelter Medications: Home Medications Medication Instructions Recorded Confirmed Type Atorvastatin Calcium [Atorvastatin 20 mg PO DAILY 09/28/17 11/04/18 History 20mg Tab] Lisinopril [Lisinopril 20mg Tab] 20 mg PO DAILY 09/28/17 11/04/18 History Pantoprazole Sodium [Protonix 40mg 40 mg PO DAILY 11/04/18 11/04/18 History tablet] Ondansetron [Ondansetron Odt 8mg 8 mg PO Q8HP PRN #30 tab 11/08/18 Rx Tab] Promethazine HCl 12.5 mg PO Q6HP PRN #30 tab 11/08/18 Rx Simethicone [Gas-X Ultra Strength] 180 mg PO Q6HP PRN #30 cap 11/08/18 Rx Prescriptions/Medication Reconciliation: New Promethazine HCl 12.5 mg PO Q6HP PRN #30 tab PRN Reason: Nausea Simethicone [Gas-X Ultra Strength] 180 mg PO Q6HP PRN #30 cap PRN Reason: Abdominal Distention Ondansetron [Ondansetron Odt 8mg Tab] 8 mg PO Q8HP PRN #30 tab PRN Reason: Nausea Continued Lisinopril [Lisinopril 20mg Tab] 20 mg PO DAILY Atorvastatin Calcium [Atorvastatin 20mg Tab] 20 mg PO DAILY Pantoprazole Sodium [Protonix 40mg tablet] 40 mg PO DAILY
== END 2018-11-08 15:44 | disposition home or self-care (01) | DRG 390 ==
LOC: ER 07:45 → 2ND 14:31
PROVIDERS: ADMIT Family Medicine; ATTEND Family Medicine
CPT/HCPCS: 74021; 74022; 74177; 80053; 83690; 84484; 85007; 85025; 93005; 96365; 96375; 96376; 99285; J2405; Q9967

== ENCOUNTER → 2018-11-17 08:31 | Outpatient (CLI) | payer OTHER, MEDICARE, SELFPAY ==
--- NOTE | 2018-11-17 08:34 | FL_ITS ---
FL upper GI small bowel HISTORY: ITS.REASON: bloating, diarrhea, ileus, possible SBO ORDERING PHYSICIAN: Isaias Brennan MD PATIENT AGE: 67 years Comparison: None FINDINGS: [employer] exam shows nonspecific nonobstructive bowel gas pattern. Examination of the esophagus shows a small mid esophageal diverticulum which projects toward the right. There is a moderate-sized hiatal hernia. No ulcer or mass is evident. The duodenum has an unremarkable appearance. There is a small duodenal diverticulum projecting off the second portion of the duodenum. Small bowel follow-through: There is normal transit time to the large bowel. Terminal ileum has an unremarkable appearance. No obstructing lesions are evident. No mass or mucosal abnormalities. There was some mild prominence of the small bowel loops in the left lower quadrant and pelvis however, no obstructing lesions were evident. IMPRESSION: 1. Small mid esophageal traction diverticulum 2. Moderate-sized hiatal hernia. 3. Otherwise negative upper GI and small bowel follow-through FLUOROSCOPY TIME : 5 minutes and 29 seconds.
== END ==
PROVIDERS: PCP Family Medicine; Visit Provider Surgery
DX: K56.7 Ileus, unspecified (principal)
CPT/HCPCS: 74245

== ENCOUNTER → 2021-02-28 09:12 | Outpatient (CLI) | payer OTHER, MEDICARE, SELFPAY | PROVIDERS: Visit Provider Surgery | DX: Z01.812 Encounter for preprocedural laboratory examination (principal); Z11.52 Encounter for screening for COVID-19; Z12.11 Encounter for screening for malignant neoplasm of colon | CPT/HCPCS: C9803; U0003; U0005 ==

== ENCOUNTER 2021-03-02 09:14 | Day surgery (SDC) | payer OTHER, MEDICARE, SELFPAY ==
[2021-02-28 14:04] VITALS: BMI 25.2
[2021-03-02] VITALS (9 sets, daily range): BP systolic 97–158; BP diastolic 59–99; PULSE 73–117; RESP 16–18; TEMP 36.2–36.9; O2SAT 93–98
--- NOTE | 2021-03-02 10:07 | HMH.ANESCL ---
[facility] Anesthesia Checklist - Patient Identification Patient Identification: Arm Band - Structural Data Admitted From: Home Planned Operative Procedure/s: colonoscopy Consent for Planned Operative Procedure(s) Verified: Yes Verified Documents: Surgical Consent, History and Physical - NPO Status Verified Time NPO: 06:30 (sips of apple juice) - Additional verifications Anesthesia Reactions: No - Airway Assessment C-Spine Mobility Assessed: Yes (mp2) TMJ Mobility Assessed: Yes Dentition: Good Dentition - Neurological Assessment Level of Consciousness: Awake, Alert - Anesthesia Plan Anesthesia Risk discussed: Yes Anesthesia Plan: Verified ASA Class: II Anesthesia Type: MAC [facility] History I have reviewed the patient's past medical history: Yes Medical History: Reports:: Cancer (prostate), Gastroesophageal Reflux Disease(GERD), Hyperlipidemia, Hypertension Denies:: Diabetes Mellitus Type 1, Diabetes Mellitus Type 2, Internal Pacemaker, Lung Disease, Seizures *Have you ever received a pneumonia vaccine?: Yes *Have you received a flu vaccine this season?: Yes Anesthesia experience/problems:: nac Other Surgeries: Yes: Cancer Surgery (prostate removal), Colonoscopy, Other (prostate removed). No: Pacemaker Amputation: No Fractures: No - *Social History Last grade of school completed: High school graduate Smoking Status: Never smoker Alcohol Intake: never Substance Use Type: denies use *Occupational Status:: employed Housing: house Household Members: none *Travel in the last 8 weeks: None Family Hx:: Diabetes
--- NOTE | 2021-03-02 10:21 | P.PCN_ITS ---
- Procedure: Date: 03/02/21 Patient Date of :: 1950 Procedure Performed:: Colonoscopy with polypectomy by means other than snare Indications:: History of polyps This is a 70-year-old gentleman with a complex gastrointestinal history including irritable bowel syndrome, recurrent colitis, recurrent ileus, and resolving bowel obstruction. He also has a history of adenomatous polyps dating back at least to 2016. His most recent colonoscopy in June 2018 did reveal multiple polyps including a polyp that was quite lobulated and large. This area was tattooed. Pathology was benign. A follow-up visit in December 2018 for ongoing complaints of bloating/ileus resulted in recommendations for gastroenterology consultation. Per the patient's report, the nutrition manager did not wish to repeat colonoscopy (short-term colonoscopy recommended by the s urgical service). In addition to the above, conversations with regard to possible barium enema to improve visualization (history of significant tortuosity/spasticity) and possible capsule endoscopy were discussed with the patient. He wished to hold off for now . Performing Provider:: Isaias Brennan MD Referring Provider:: . Sedation:: Monitored anesthesia care Procedure:: After informed consent was obtained the patient was taken to the endoscopy suite. Sedation ensued after the patient was transferred to the left lateral decubitus position. Pulse, blood pressure, and oxygen saturation were monitored throughout the procedure. Digital rectal exam revealed no significant abnorma lity. The colonoscope was placed in position. The entire colon was evaluated. The colonoscope was carefully removed and the patient was transferred to recovery in stable condition. Please see findings and specimens below for detail. Findings:: Bowel preparation moderate to poor Profound lack of relaxation Severe tortuosity Right colon polyp Tattoo site appeared normal Specimens:: Right colon polyp (snare) Recommendations:: Secondary to limited visualization (moderate to poor bowel prep, severe tortuosity, and profound lack of relaxation) and the patient's significant history of gastrointestinal complaints, I recommend an short-term repeat colonoscopy (approximately 1 year) by the gastroenterology service. Complications:: No immediate Estimated blood obtained (mL): 1
== END 2021-03-02 11:10 | disposition home or self-care (01) ==
LOC: OUTP 09:18
PROVIDERS: PCP Family Medicine; Visit Provider Surgery
PROC: 0DJD8ZZ Inspection of Lower Intestinal Tract, Via Natural or Artificial Opening Endoscopic (ICD-10-PCS; CPT 45385; principal; 2021-03-02 10:30)
DX: Z12.11 Encounter for screening for malignant neoplasm of colon (principal); K62.89 Other specified diseases of anus and rectum; Z87.19 Personal history of other diseases of the digestive system; K63.5 Polyp of colon; K56.2 Volvulus; Z86.010 Personal history of colon polyps
CPT/HCPCS: 45385

== ENCOUNTER → 2022-10-19 09:12 | Outpatient (CLI) | payer MEDICARE, SELFPAY ==
--- NOTE | 2022-10-19 09:17 | XR_ITS ---
FINAL REPORT CLINICAL HISTORY: LT HEEL PAIN FINDINGS: LEFT FOOT SERIES Three views of the left foot were obtained. There is no acute fracture or dislocation. There is mild degenerative change of the first metatarsal phalangeal joint. There is no soft tissue abnormality. IMPRESSION: Mild degenerative change. Reviewed, Interpreted and Dictated by Stephen Caballero III, MD Transcribed by Pauline Barraza Authenticated and [facility]
== END ==
PROVIDERS: PCP Nurse Practitioner Family; Visit Provider Nurse Practitioner Family
DX: M79.672 Pain in left foot (principal)
CPT/HCPCS: 73630